=== PATIENT | male | born 1935 | race Caucasian/White ===

== ENCOUNTER 2022-08-17 11:43 | Day surgery (SDC) | payer MEDICARE, OTHER ==
[~2022-08-17] VITALS: Ht 190.5 cm; Wt 93.2 kg
[2022-08-17] VITALS (8 sets, daily range): BP systolic 110–151; BP diastolic 47–81
[2022-08-17] MEDS ORDERED: ROSU5TAB12 (12:11)
[2022-08-17] MEDS ORDERED: FINA5TAB11 PO (12:11)
[2022-08-17] MEDS ORDERED: OMEG-42 PO (12:11)
[2022-08-17] MEDS ORDERED: FLAX10007 PO (12:11)
[2022-08-17] MEDS ORDERED: METF-900 PO (12:11)
[2022-08-17] MEDS ORDERED: ASPI-1071 PO (12:11)
[2022-08-17] MEDS ORDERED: GLIP5TAB13 PO (12:11)
[2022-08-17] MEDS ORDERED: METF-438 PO (12:11)
[2022-08-17] MEDS ORDERED: iohexol 300mg/ml 100ml inj. ONE (13:04)
[2022-08-17] MEDS ORDERED: fentaNYL/PF 50MCG/1 ML 2ML syringe ONE (13:04)
[2022-08-17] MEDS ORDERED: MIDAZolam 1 MG/ML 5ML VIAL ONE (13:04)
[2022-08-17] MEDS ORDERED: diphenhydrAMINE 50 mg/ml inj ONE (13:05)
[2022-08-17] MEDS ORDERED: glucagon, human recombinant 1mg kit ONE (13:05)
[2022-08-17] MEDS ORDERED: levoFLOXACIN-Levaquin 500mg/D5 100 ML IV ONE (13:05)
[2022-08-17] MEDS ORDERED: LIDOcaine Viscous 15ml cup ONE (13:05)
== END 2022-08-17 17:14 | disposition home or self-care (01) ==
LOC: GI LAB 11:43
PROVIDERS: ATTEND Internal Medicine Gastroenterology
DX: K83.1 Obstruction of bile duct (principal); K86.9 Disease of pancreas, unspecified
CPT/HCPCS: 43274; 74328; 99153; C1769; C2625; G0500; J1610; J1956; J2250; J3010; J7030; Q9967; Z7512; Z7610; 43261; 43262; 43277; 88108; 99152; A4620; J1200